=== PATIENT | female | born 1990 | race Caucasian/White ===

== ENCOUNTER 2016-12-04 14:58 | Emergency (ER) | payer SELFPAY ==
[~2016-12-04] VITALS: Ht 172.7 cm; Wt 65.0 kg
[2016-12-04] MEDS ORDERED: HYDROCO/APAP1 TA9 PO (18:33)
[2016-12-04 18:50] VITALS: BP 106/57
== END 2016-12-04 16:15 | disposition other institution (70) | DRG 770 ==
LOC: ED 14:58
PROC: 10D17ZZ Extraction of Products of Conception, Retained, Via Natural or Artificial Opening (ICD-10-PCS; principal; 2016-12-04)
DX: O02.1 Missed abortion (principal)